=== PATIENT | male | born 1995 | race Caucasian/White ===

== ENCOUNTER 2021-07-31 11:44 | Emergency (ER) | payer OTHER, BC ==
[2021-07-31 12:10] LABS: HEMOGLOBIN 17.6 gm/dl (14.0-17.5); RED BLOOD COUNT 5.3 M/UL (4.20-5.50); WHITE BLOOD COUNT 9.5 K/UL (4.5-11.0)
[2021-07-31 12:30] LABS: BUN/CREATININE RATIO 14 (0-10)
[2021-07-31] MEDS ORDERED: CEPHALEXIN500 M1 PO (15:01)
[2021-07-31] MEDS ORDERED: BACTROBAN OINT22 GM EXT ×2 (15:01→15:19)
[2021-07-31] MEDS ORDERED: HYDROCODON-ACE1 EAC4 PO ×2 (15:01→15:18)
== END 2021-07-31 17:45 | disposition home or self-care (01) ==
LOC: ER1 11:44
PROVIDERS: Emergency Medicine
DX: S81.012A Laceration without foreign body, left knee, initial encounter (principal); S01.81XA Laceration without foreign body of other part of head, initial encounter; S13.4XXA Sprain of ligaments of cervical spine, initial encounter; S80.01XA Contusion of right knee, initial encounter; S00.81XA Abrasion of other part of head, initial encounter; F17.200 Nicotine dependence, unspecified, uncomplicated; V49.60XA Unspecified car occupant injured in collision with unspecified motor vehicles in traffic accident, initial encounter
CPT/HCPCS: 70450; 71045; 71260; 72125; 72170; 73110; 73130; 73560; 73590; 80053; 80307; 81001; 83605; 85025; 85610; 85730; 86850; 86900; 86901; 93005; 96374; 96375; 99284; G0480; J0690; J2270; J2405; Q9967